=== PATIENT | female | born 1975 | race Caucasian/White ===

== ENCOUNTER 2018-11-27 11:27 | Inpatient (IN) ==
[2018-11-27] MEDS ORDERED: Naloxone 0.4 MG/ML INJ IVP PRN (16:21)
[2018-11-27] MEDS ORDERED: Ondansetron 4 MG/2 ML VIAL IVP PRN (16:21)
[2018-11-27] MEDS ORDERED: Piperacillin/Tazobactam 3.375 GM in Water for inj. (sterile) 20 ML IVP ONE (16:28)
[2018-11-27] MEDS ORDERED: Ringers Solution, Lactated 1,000 ML IVC SCH (16:30)
--- NOTE | 2018-11-27 16:48 | Internal Med History&Physical ---
Date of Encounter: 11/27/18 Time of Encounter: 16:00 Internal Medicine - H&P: HPI Chief complaint: periorbital cellulitis Admitted From: Hospital to Hospital Transfer Plans for Post Hospital Care: Home History of present illness: Mrs. 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 Patient was in the emergency department on 11/22 due to eye abration. She then followed with graduate research assistant and she was placed on antibiotics with improvement in her symptoms. She woke up today with erythema, and swelling around her orbitals. She denied any vision changes, fever, chills or night sweats. She has no nausea or vomiting. She denied any chest pain, shortness of breath, palpitation, abdominal pain, changes in urinary or bowel habits. CT scan of the orbit does did not reveal any abscess formation however it revealed preseptal left orbital cellulitis with no post-septal extension. Patient was also noted to have infected cyst on her forehead which was incision and drained by the emergency department physician. Patient was afebrile, HDS. She has leukocytosis with WBC count 11.5, her kidneys function at baseline with BUN 24, creatinine 2.33. Rest of the blood work was unremarkable. Of note, patient had kidney transplant in 2010 and she is on Prograf and CellCept. Her transplant was done at [place] and she follows once a year overdue and she has an establish care with a shank threader [facility]. Past Med Surg Social Fam HX - Past Medical History Attestation: Yes The following information was validated with the patient. Source: patient Medical history: dialysis, renal disease, thyroid disease Additional medical history: tuberous sclerosis, dialysis 6yrs ago, kidney transplant Psychiatric history: no psych history - Past Surgical History Surgical History: herniorrhaphy, hysterectomy Additional surgical history: kidney transplant right 13yrs ago, fistula to right arm - Social History Smoking Status: Never smoker Smokeless Tobacco Status: No Alcohol use: none Drug use: none - Family History Mother Hx Family GI Disorders: No - Additional Family History Additional family history: she doesn't report any family history Internal Medicine - H&P: Meds Aspirin [Adult Low Dose Aspirin EC] 81 mg PO DAILY 02/18/15 [History] Mycophenolate Mofetil [Cellcept] 250 mg PO BID 02/18/15 [History] Tacrolimus [Prograf] 1 mg PO QAM 02/18/15 [History] Tacrolimus [Prograf] 2 mg PO HS 12/16/16 [History] Cinacalcet [Sensipar] 30 mg PO DAILY 04/15/17 [History] Cholecalciferol (Vitamin D3) [Vitamin D3] 5,000 unit PO DAILY 08/07/18 [History] Ciprofloxacin HCl [Cipro] 250 mg PO BID #14 tab 08/07/18 [Rx] Melatonin 3 mg PO HS 08/07/18 [History] Pantoprazole Sodium [Protonix] 40 mg PO DAILY 08/07/18 [History] Potassium Chloride [K-Tab ER] 20 meq PO DAILY 08/07/18 [History] Ranitidine HCl [Heartburn Relief] 150 mg PO DAILY 08/07/18 [History] Simvastatin [Zocor] 20 mg PO HS 08/07/18 [History] Diclofenac Sodium 1 drop LEFT EYE Q6H PRN #2.5 drops 11/22/18 [Rx] Gentamicin OPTH Soln [Gentak OPTH Soln] 1 drop LEFT EYE QID #5 bottle 11/22/18 [Rx] Allergy/AdvReac Type Severity Reaction Status Date / Time latex Allergy Hives Verified 03/16/18 07:10 Sulfa (Sulfonamide Allergy Hives Verified 03/16/18 07:10 Antibiotics) morphine AdvReac Confusion Verified 03/16/18 07:10 promethazine [From Phenergan] AdvReac Confusion Verified 03/16/18 07:10 DAIRY PRODUCTS AdvReac Diarrhea Uncoded 12/16/16 09:07 All Systems PM: A 10-system review of systems was performed and is negative for pertinent findings except as documented above in the HPI. - Constitutional Vitals: Temp Pulse Resp BP Pulse Ox 98.2 F 84 17 117/83 98 11/27/18 15:22 11/27/18 15:22 11/27/18 15:22 11/27/18 15:22 11/27/18 15:22 Exam: General: Patient is alert, oriented 3. Head: Atraumatic, normal inspection, normocephalic. Eye: EOMI, PERRLA, no scleral icterus noted. Mild conjunctival erythema. Periorbital Mild warmth and erythema noted bilaterally, no fluctuation or abscess formation noted. ENT: Mucous membranes moist. Neck: Normal inspection, no meningismus. Respiratory: No respiratory distress, rhonchi, or wheezes noted. Cardiovascular: Regular rate and irregular rhythm, S1 and S2 audible. No murmurs, rubs, or gallops. GI: Soft, nondistended, normal bowel sounds. Extremities:No joint swelling, pedal edema, or tenderness noted. Neurological: Alert, oriented 3, no focal deficits. Psychiatric: normal affect, normal mood. Skin: Dry, intact, warm. Normal color. No rashes. Internal Med - H&P Results - EKG Data Prior EKG available for review: yes Interpretation IM: normal EKG - Diagnostic Studies Other Images Additional comments: CT scan of the orbital with periorbital swelling - Assessment and Plan (1) Periorbital cellulitis Current Visit: Yes Status: Acute Qualifiers: Laterality: left Qualified Code(s): L03.213 - Periorbital cellulitis (2) History of kidney transplant Current Visit: Yes Status: Chronic (3) Hyperlipidemia Current Visit: Yes Status: Acute Qualifiers: Hyperlipidemia type: unspecified Qualified Code(s): E78.5 - Hyperlipidemia, unspecified (4) History of tuberous sclerosis Current Visit: Yes Status: Chronic (5) DVT prophylaxis Current Visit: Yes Status: Acute - Summary of Assessment and Plan Summary of Assessment and Plan: Mrs. 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 periorbital cellulitis: - Patient is not septic. she has mild leukocytosis. - Will get BCx and MRSA swab. - will start her on Zyvox AND renally dosed zosyn - consult placed to ID. Hx of kidney transplant: - Nephrology is consulted. Will keep both Prograf and CellCept. - We will check Prograf level CVD stage III: - Creatinine is 2.3 which is at baseline. - We will give 1 L of IV fluids. Monitor input and output, renal diet and consult nephrology. Hyperlipidemia: - Continue simvastatin DVT prophylaxis: - Subacute heparin CODE STATUS: Full code - Time Spent With Patient Total time spent is greater than 50% in coordination of care (as documented) at patient's floor/unit and/or counseling patient:
[2018-11-27 17:09] LABS: Basophils % 0.2 %; Eosinophils # 0.1 K/mcL (0.0-0.6); Eosinophils % 0.4 %; Hematocrit 35.1 % (35.3-44.9); Hemoglobin 10.4 g/dL (11.5-15.4); Immature Granulocytes % 0.3 % (0-4); Lymphocytes # 0.8 K/mcL (0.6-4.6); Lymphocytes % 6.5 %; Mean Corpuscular HGB Conc 29.6 g/dL (31.6-35.5); Mean Corpuscular Volume 101.2 fL (83.0-100.0); Monocytes # 0.5 K/mcL (0.0-1.3); Monocytes % 4.6 %; Neutrophils # 10.2 K/mcL (1.6-8.9); Platelet Count 147 K/mcL (140-400); Red Blood Count 3.47 M/mcL (3.82-4.97); Red Cell Distribution Width 13.2 % (11.5-14.5); White Blood Count 11.6 K/mcL (4.3-11.1)
[2018-11-27] MEDS ORDERED: DICLOFENAC OP PRN (17:16)
[2018-11-27] MEDS: Piperacillin/Tazobactam 3.375 GM in 0.9 % Sodium Chloride Mini Bag 100 ML IVPB SCH (17:58)
[2018-11-27] MEDS: *HR* Heparin 5,000 UNIT/ML VIAL SQ SCH (17:58)
[2018-11-27 18:52] LABS: Bilirubin,Urine Negative (Negative); Blood,Urine Negative (Negative); Clarity,Urine Cloudy (Clear); Color,Urine Yellow (Yellow); Glucose,Urine (UA) Normal (Normal); Ketones,Urine Negative (Negative); Leukocyte Esterase,Urine Moderate (Negative); Nitrite,Urine Negative (Negative); Protein,Urine Trace mg/dL (Neg-Trace); Specific Gravity,Urine 1.013 (1.010-1.025); Urobilinogen,Urine Normal (Normal)
[2018-11-27 18:55] LABS: Bacteria,Urine None Seen per hpf (None-Few); Hyaline Casts,Urine None Seen per lpf (None-Few); RBC,Urine 0-3 per hpf (0-3); Squamous Epithelial Cell,Urine Many per lpf (None-Few); WBC,Urine 50-100 per hpf (0-3)
[2018-11-27] MEDS: Tacrolimus [Prograf] 1 MG PO SCH (20:55)
[2018-11-27] MEDS: Melatonin 3 MG TABLET PO SCH (20:55)
[2018-11-27] MEDS: Gentamicin OPTH Soln 5 ML BOTTLE LEFT EYE SCH (20:55)
[2018-11-28] MEDS: Piperacillin/Tazobactam 3.375 GM in 0.9 % Sodium Chloride Mini Bag 100 ML IVPB SCH ×3 (00:25→17:00)
[2018-11-28 01:37] LABS: Calcium 9.1 mg/dL (8.6-10.3); Magnesium 1.8 mg/dL (1.6-2.6); Phosphorous 4.6 mg/dL (2.7-4.5); Potassium 4.5 mEq/L (3.5-5.1)
[2018-11-28] MEDS: *HR* Heparin 5,000 UNIT/ML VIAL SQ SCH ×2 (06:46→17:17)
[2018-11-28] MEDS ORDERED: TACROLIMUS 2 MG PO SCH (09:00)
[2018-11-28] MEDS: Cholecalciferol (D-3) 1,000 UNIT TABLET PO SCH (09:59)
[2018-11-28] MEDS: Aspirin Enteric Coated 81 MG Tablet PO SCH (09:59)
[2018-11-28] MEDS: Gentamicin OPTH Soln 5 ML BOTTLE LEFT EYE SCH ×4 (10:05→21:01)
[2018-11-28] MEDS: Tacrolimus [Prograf] 1 MG PO SCH ×2 (10:08→21:01)
[2018-11-28 11:23] LABS: Basophils % 0.2 %; Eosinophils # 0.1 K/mcL (0.0-0.6); Eosinophils % 1.5 %; Hematocrit 36.3 % (35.3-44.9); Immature Granulocytes % 0.4 % (0-4); Lymphocytes # 0.8 K/mcL (0.6-4.6); Mean Corpuscular HGB Conc 30.3 g/dL (31.6-35.5); Mean Corpuscular Hemoglobin 29.8 pg (28.0-33.3); Mean Corpuscular Volume 98.4 fL (83.0-100.0); Mean Platelet Volume 10.4 fL (9.4-12.4); Monocytes # 0.4 K/mcL (0.0-1.3); Monocytes % 5.2 %; Neutrophils # 6.7 K/mcL (1.6-8.9); Platelet Count 155 K/mcL (140-400); Red Blood Count 3.69 M/mcL (3.82-4.97); Red Cell Distribution Width 13.1 % (11.5-14.5); Segmented Neutrophils % 82.7 %; White Blood Count 8.1 K/mcL (4.3-11.1)
--- NOTE | 2018-11-28 14:04 | Internal Med Progress Note ---
Hospitalist Progress Note - Encounter Date of Encounter: 11/28/18 Time of Encounter: 10:00 - Subjective Interval History: Patient was seen today. She feels way better than yesterday. She denies fever, chills or night sweats. - Exam Vitals: Temp Pulse Resp BP Pulse Ox 98.1 F 67 15 109/77 95 11/28/18 10:51 11/28/18 10:51 11/28/18 10:51 11/28/18 10:51 11/28/18 10:51 Exam: General: Patient is alert, oriented 3. Head: Atraumatic, normal inspection, normocephalic. Eye: EOMI, PERRLA, no scleral icterus noted. Mild conjunctival erythema. Per iorbital Mild warmth and erythema noted bilaterally, no fluctuation or abscess formation noted. ENT: Mucous membranes moist. Neck: Normal inspection, no meningismus. Respiratory: No respiratory distress, rhonchi, or wheezes noted. Cardiovascular: Regular rate and iregular rhythm, S1 and S2 audible. No murmurs, rubs, or gallops. GI: Soft, nondistended, normal bowel sounds. Extremities:No joint swelling, pedal edema, or tenderness noted. Neurological: Alert, oriented 3, no focal deficits. Psychiatric: normal affect, normal mood. Skin: Dry, intact, warm. Normal color. No rashes. - Assessment and Plan (1) Periorbital cellulitis Current Visit: Yes Status: Inactive (2) History of kidney transplant Current Visit: Yes Status: Chronic (3) Hyperlipidemia Current Visit: Yes Status: Chronic (4) History of tuberous sclerosis Current Visit: Yes Status: Chronic (5) DVT prophylaxis Current Visit: Yes Status: Acute - Summary of Assessment and Plan Summary of Assessment and Plan: Mrs. 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 periorbital cellulitis: - Patient is not septic. she has mild leukocytosis. - Will get BCx and MRSA swab. - on Zyvox AND renally dosed zosyn day 2, will keep monitoring. - consult placed to ID. Hx of kidney transplant: - Nephrology is consulted. Will keep both Prograf and CellCept. - We will check Prograf level. CVD stage III: - Creatinine is 2.3 which is at baseline. today 2.3. - DC IV fluids. Monitor input and output, renal diet and consult nephrology. Hyperlipidemia: - Continue simvastatin DVT prophylaxis: - Subacute heparin CODE STATUS: Full code - Time Spent with Patient Total time spent is greater than 50% in coordination of care (as documented) at patient's floor/unit and/or counseling patient: Plan of Care Discussed with: patient Internal Medicine: Result - Labs CBC & Chem 7: 11/28/18 10:41 11/28/18 00:35 Labs: Short CBC 11/27/18 11/28/18 Range/Units 16:51 10:41 WBC 11.6 H 8.1 (4.3-11.1) K/mcL Hgb 10.4 L 11.0 L (11.5-15.4) g/dL Hct 35.1 L 36.3 (35.3-44.9) % Plt Count 147 155 (140-400) K/mcL Neutrophils # 10.2 H 6.7 (1.6-8.9) K/mcL BMP 11/28/18 00:35 Sodium 137 Potassium 4.5 Chloride 107 Carbon Dioxide 19 L BUN 26 H Creatinine 2.26 H Glucose 97 Calcium 9.1 Urine 11/27/18 Range/Units 17:54 Urine Color Yellow (Yellow) Urine Clarity Cloudy A (Clear) Urine pH 6.0 (5.0-8.0) pH Units Ur Specific Byron 1.013 (1.010-1.025) Urine Protein Trace (Neg-Trace) mg/dL Urine Glucose (UA) Normal (Normal) mg/dL Consult Discharge Plan - Plan Referrals: Rose Urrutia MD [Primary Care Provider] - (1) Periorbital cellulitis Qualifiers: Laterality: left Qualified Code(s): L03.213 - Periorbital cellulitis (3) Hyperlipidemia Qualifiers: Hyperlipidemia type: unspecified Qualified Code(s): E78.5 - Hyperlipidemia, unspecified
--- NOTE | 2018-11-28 17:16 | Nephrology Consult Note ---
Date of Encounter: 11/28/18 Time of Encounter: 15:00 Assessment and Plan (1) History of kidney transplant Current Visit: Yes Status: Acute Continue current antirejection regimen. tacrolimus level will take awhile to return Continue adequate fluid intake with goal of 2-3liters a day Avoid nephrotoixns if possible Lytes stable (2) History of tuberous sclerosis Current Visit: Yes Status: Chronic (3) CKD (chronic kidney disease) stage 4, GFR 15-29 ml/min Current Visit: Yes Status: Acute History of Present Illness - Reason for Consult Consult date: 11/28/18 Chronic Kidney Disease Requesting physician: Brittney Oneal - History of Present Illness 43 y o female with PMH of tuberous sclerosis with resultant ESRD requiring HD for 6 years prior to renal transplant in 2010 at and now stage 4 CKD admitted as a transfer from [facility] for periorbital cellulitis. Renal consulted to help with management on her antirejection meds, currently on cellcept and tacrolimus. Pt seen and examined feeling better after I/D lesion on forehead. SCr noted at 2.26, GFR 23 slightly improved from 2.33. Baseline fluctuates from 2-3s Past Med Surg Social Fam HX - Past Medical History Medical history: dialysis, renal disease, thyroid disease Additional medical history: tuberous sclerosis, dialysis 6yrs ago, kidney transp lant Psychiatric history: no psych history - Past Surgical History Surgical History: herniorrhaphy, hysterectomy Additional surgical history: kidney transplant right 13yrs ago, fistula to right arm - Social History Smoking Status: Never smoker Smokeless Tobacco Status: No Alcohol use: none Drug use: none - Family History Mother Hx Family GI Disorders: No Medications and Allergies Tacrolimus [Prograf] 2 mg PO BID 12/16/16 [History] Cinacalcet [Sensipar] 30 mg PO DAILY 04/15/17 [History] Ranitidine HCl [Heartburn Relief] 150 mg PO BID 08/07/18 [History] Aspirin [Adult Aspirin Regimen] 81 mg PO DAILY 11/28/18 [History] Bacitracin 1 appl LEFT EYE HS 11/28/18 [History] Besifloxacin HCl [Besivance] 1 drop LEFT EYE Q6H 11/28/18 [History] Melatonin 10 mg PO HS PRN 11/28/18 [History] Mycophenolate Mofetil [Cellcept] 250 mg PO BID 11/28/18 [History] Tobramycin Opth SOLN 1 drop LEFT EYE Q30M 11/28/18 [History] predniSONE [PredniSONE] 5 mg PO DAILY 11/28/18 [History] 3 Allergy/AdvReac Type Severity Reaction Status Date / Time latex Allergy Hives Verified 03/16/18 07:10 Sulfa (Sulfonamide Allergy Hives Verified 03/16/18 07:10 Antibiotics) morphine AdvReac Confusion Verified 03/16/18 07:10 promethazine [From Phenergan] AdvReac Confusion Verified 03/16/18 07:10 DAIRY PRODUCTS AdvReac Diarrhea Uncoded 12/16/16 09:07 Exam - Vital Signs Vital signs: Initial Vital Signs Temp Pulse Resp BP Pulse Ox 98.2 F 84 17 117/83 98 11/27/18 15:22 11/27/18 15:22 11/27/18 15:22 11/27/18 15:22 11/27/18 15:22 Vital Signs - Last 8 Hours Temp Pulse Resp BP Pulse Ox 11/28/18 14:56 98.8 F 78 17 119/77 96 11/28/18 10:51 98.1 F 67 15 109/77 95 Intake and Output 11/28/18 11/28/18 11/28/18 07:59 15:59 23:59 Intake Total 100 / 320 220 / 320 Output Total 300 / 1200 900 / 1200 Balance -200 / -880 -680 / -880 Intake: IV Fluids 100 / 200 100 / 200 Zosyn 3.375 GM In 0.9 % Sodium 100 / 200 100 / 200 Chloride (Mini-Bag +) 100 ML @ 25 mls/hr IVPB Q8H [facility] Rx#: [id number] Oral 0 / 120 120 / 120 Output: Urine 300 / 1200 900 / 1200 Other: Meal Lunch Percent of Meal Consumed 75% Weight 107.3 kg Patient Weight 11/28/18 23:59 Weight 107.3 kg Results - Lab Results 11/28/18 10:41 11/28/18 00:35 Consult Discharge Plan - Plan Referrals: Rose Urrutia MD [Primary Care Provider] -
[2018-11-28] MEDS: Melatonin 3 MG TABLET PO SCH (21:00)
[2018-11-29] MEDS: Piperacillin/Tazobactam 3.375 GM in 0.9 % Sodium Chloride Mini Bag 100 ML IVPB SCH ×2 (01:27→09:15)
[2018-11-29 02:04] LABS: Calcium 9.5 mg/dL (8.6-10.3); Potassium 4.4 mEq/L (3.5-5.1)
[2018-11-29] MEDS: *HR* Heparin 5,000 UNIT/ML VIAL SQ SCH (06:06)
[2018-11-29] MEDS: Cholecalciferol (D-3) 1,000 UNIT TABLET PO SCH (09:14)
[2018-11-29] MEDS: Aspirin Enteric Coated 81 MG Tablet PO SCH (09:14)
[2018-11-29] MEDS: Gentamicin OPTH Soln 5 ML BOTTLE LEFT EYE SCH ×2 (09:16→12:46)
[2018-11-29] MEDS: Tacrolimus [Prograf] 1 MG PO SCH (09:16)
--- NOTE | 2018-11-29 09:47 | Infectious Disease Consult ---
Infectious Disease-Consult - Encounter Date/Time Date of Encounter: 11/29/18 Time of Encounter: 11:08 - Data of Consult Patient: new to practice Reason for consult: periorbital cellulitis, on immunosupression Consult date: 11/29/18 Requesting Physician: Brittney Oneal Primary Care Provider: Rose Urrutia MD - HPI HPI: Ms. Wellington is a 43-year-old female with a past medical history of tuberous scl erosis status post renal transplant in 2010 currently on Prograf and CellCept, and thyroid disease. The patient was admitted to the hospital 11/27/18 for an infected sebaceous cyst and P orbital cellulitis. We are consulted 11/29/18 for further workup and treatment recommendations 4. Orbital cellulitis in an immunosuppressed patient. Briefly, the patient's a 43-year-old female with a past medical history as stated above. The patient was evaluated in the emergency department on 11/22/18 when she presented with complaints of left eye pain. She was diagnosed with a corneal abrasion and referred to ophthalmology who placed her on antibiotic eyedrops. She was doing well until the day before this admission when she developed a bump to the middle of her for head that progressively became more painful and swollen. On the day of admission, she woke up with left. Orbital swelling and presented to the ER for evaluation. Upon arrival, the patient was afebrile and hemodynamically stable. Her WBC was normal. Renal function was at baseline. Urinalysis was collected and appeared contaminated, but was sent for culture which is no growth. She underwent a bedside I&D of the sebaceous cyst on her for head. Cultures were obtained and are no growth. She was CT of the orbits that revealed findings consistent with preseptal left orbital cellulitis and soft tissue forehead swelling. Blood cultures were obtained 2 sets. She was transferred to [facility] for further evaluation and treatment. Since admission here, the patient has remained afebrile and hemodynamically stable. Her WBC remains normal. Repeat blood cultures drawn upon arrival here are also no growth to date 2 sets. She had a MRSA nasal screen was negative. Nephrology was consulted. Currently, she is on IV Zyvox and Zosyn. He is also on gentamicin eyedrops. We have been asked to evaluate and make further recommendations. During my exam today, the patient is somewhat resistant to my questions and exam. She does endorse the history as stated above. States she has never had anything like this before area and states she has not had any fevers or chills or rigors. Denies headache or neck pain. Reports some mild blurred vision in her left eye secondary to her corneal abrasion that seems to be improved. Denies pain with movement of her eyes. States the pain and swelling to her for head is markedly improved and is no longer painful. Denies chest pain, shortness of breath, or cough. Denies nausea, vomiting, diarrhea, or constipation. Denies oral thrush or skin rashes. Denies abdominal pain or urinary complaints. The patient lives at home with her parents. She does not work outside the home. Her transplant surgery was in [place] and she continues to follow with her transplant surgeon on a regular basis. She is currently on CellCept and Prograf and states that she has 100% compliant with her medications. She denies any chronic infectious diseases. Denies tobacco, alcohol, or illicit drug use. - ROS Review of Systems: All systems reviewed and no additional remarkable complaints except as stated. - Results CBC & Chem 7: 11/28/18 10:41 11/29/18 01:10 - Exam Vitals: Temp Pulse Resp BP Pulse Ox 97.8 F 63 16 112/76 99 11/29/18 06:38 11/29/18 06:38 11/29/18 06:38 11/29/18 06:38 11/29/18 06:38 Exam: Head: Atraumatic, normal inspection, normocephalic. Scabbed lesion noted to the middle of the forehead with mild surrounding edema. No erythema, warmth, tenderness, or drainage noted. Eye: EOMI, EOM painless. PERRLA, no scleral icterus noted. Mild left periorbital edema noted without erythema or tenderness. ENT: Mucous membranes moist. No odontogenic infection noted. Neck: Normal inspection, no meningismus. Respiratory: Clear to auscultation. No rales, respiratory distress, rhonchi, or wheezes noted. Cardiovascular: Regular rate and rhythm, S1 and S2 audible. No murmurs, rubs, or gallops. GI: Soft, nondistended, normal bowel sounds. Extremities:No joint swelling, pedal edema, or tenderness noted. AV fistula noted to the right upper extremity positive/positive. Back: Normal inspection. No vertebral tenderness noted. Neurological: Alert, oriented 3, no focal deficits. Psychiatric: normal affect, normal mood. Skin: Dry, intact, warm. Normal color. No rashes. Multiple skin tags noted to various areas of the body. Tacrolimus [Prograf] 2 mg PO BID 12/16/16 [History] Cinacalcet [Sensipar] 30 mg PO DAILY 04/15/17 [History] Ranitidine HCl [Heartburn Relief] 150 mg PO BID 08/07/18 [History] Aspirin [Adult Aspirin Regimen] 81 mg PO DAILY 11/28/18 [History] Bacitracin 1 appl LEFT EYE HS 11/28/18 [History] Besifloxacin HCl [Besivance] 1 drop LEFT EYE Q6H 11/28/18 [History] Melatonin 10 mg PO HS PRN 11/28/18 [History] Mycophenolate Mofetil [Cellcept] 250 mg PO BID 11/28/18 [History] Tobramycin Opth SOLN 1 drop LEFT EYE Q30M 11/28/18 [History] predniSONE [PredniSONE] 5 mg PO DAILY 11/28/18 [History] Cholecalciferol (D-3) [Vitamin D] 1,000 unit PO DAILY tablet 11/29/18 [Rx] Clindamycin HCl [Cleocin HCl] 600 mg PO TID 14 Days #42 cap 11/29/18 [Rx] Gentamicin OPTH Soln [Gentak OPTH Soln] 1 drop LEFT EYE QID bottle 11/29/18 [Rx] Patient Taking Own Medication 1 each OP Q6H PRN each 11/29/18 [Rx] Simvastatin [Zocor] 20 mg PO HS tablet 11/29/18 [Rx] Allergy/AdvReac Type Severity Reaction Status Date / Time latex Allergy Hives Verified 03/16/18 07:10 Sulfa (Sulfonamide Allergy Hives Verified 03/16/18 07:10 Antibiotics) morphine AdvReac Confusion Verified 03/16/18 07:10 promethazine [From Phenergan] AdvReac Confusion Verified 03/16/18 07:10 DAIRY PRODUCTS AdvReac Diarrhea Uncoded 12/16/16 09:07 - Assessment and Plan (1) Preseptal cellulitis of left eye Status: Acute Causative organism: Unclear. Etiology: Unclear. CT of the orbits showed findings consistent with preseptal cellulitis. Improved per patient report. No erythema or tenderness noted on exam. Currently on zyvox and Zosyn. SNOMED Code(s): 155933124 (2) Infected sebaceous cyst Status: Acute Etiology: Unclear. Status post bedside I&D. Wound culture no growth. Improved per patient report. Currently on Zyvox and Zosyn. SNOMED Code(s): 995379572 (3) Corneal abrasion Status: Inactive Gentamicin drops per ophthalmology. Qualifiers: Encounter type: initial encounter Laterality: left Qualified Code(s): S05.02XA - Injury of conjunctiva and corneal abrasion without foreign body, left eye, initial encounter SNOMED Code(s): 48470480 (4) CKD (chronic kidney disease) stage 4, GFR 15-29 ml/min Status: Chronic Creatinine appears to be at baseline. Nephrology consult and following. Avoid nephrotoxins as able. Dosage adjust medications. SNOMED Code(s): 040574100 (5) History of kidney transplant Status: Chronic Status post renal transplant in 2010 at [facility]. Currently on CellCept and Prograf. SNOMED Code(s): 352216643, 908311856 (6) History of tuberous sclerosis Status: Chronic SNOMED Code(s): 089446225, 596048740 - Recommendations Recommendations: Await blood cultures to finalize. Gentamicin eye gtt's per opthalmology recommendations. Continue Zosyn 3.375 grams IV Q8H. (CrCl ~21). Continue Zyvox 600 mg IV twice a day. Duration of treatment depends on the clinical picture. Can likely transition to oral clindamycin 600mg PO Q8H when ready for discharge to complete a total of 14 days of treatment. Treat through 12/10/18. Monitor renal function closely and dose-adjust antibiotics. Past Med Surg Social Fam HX - Past Medical History Medical history: dialysis, renal disease, thyroid disease Additional medical history: tuberous sclerosis, dialysis 6yrs ago, kidney tra nsplant Psychiatric history: no psych history - Past Surgical History Surgical History: herniorrhaphy, hysterectomy Additional surgical history: kidney transplant right 13yrs ago, fistula to right arm - Social History Smoking Status: Never smoker Smokeless Tobacco Status: No Alcohol use: none Drug use: none - Family History Mother Hx Family GI Disorders: No Consult Discharge Plan - Plan Instructions: Clindamycin (By mouth), Cellulitis (DC), Corneal Abrasion (GEN), Orbital Cellulitis (GEN), Epidermal Inclusion Cysts (GEN) Referrals: Rose Urrutia MD [Primary Care Provider] - (Web request sent. Office will call patient with date and time of appointment. Thank you) Prescriptions: Clindamycin HCl [Cleocin HCl] 600 mg PO TID 14 Days #42 cap - Attending Attestation I have personally performed a face to face evaluation on this patient. I have reviewed and agree with the care plan. History and Exam by me shows: This is an addendum to original report dictated by Beverley Orourke CMP. Please refer to Beverley's note for full detail. I agree with above history of present illness, review of systems and physical exam findings. Assessment and plan: Preseptal cellulitis resolved Abscess on the forehead resolved Immunosuppressed status secondary to tuberous sclerosis Currently on Prograf and CellCept X Recommendations: Gentamicin eye gtt's per opthalmology recommendations. transition to oral clindamycin 600mg PO Q8H when ready for discharge to complete a total of 14 days of treatment. Treat through 12/10/18. Monitor renal function closely and dose-adjust antibiotics. Discussed with the hospitalist team
[2018-11-29 14:10] VITALS: BP 104/73
--- NOTE | 2018-11-29 16:59 | Discharge Summary ---
- NOTES TO OUTPATIENT PROVIDER Notes to Outpatient Provider: finish her course of ABx Orders not resulted at time of discharge: Pending orders 11/27/18 16:51 Culture,Blood [BC] Stat Date of Encounter: 11/29/18 Time of Encounter: 10:00 - Discharge Diagnosis (1) Periorbital cellulitis Priority: Primary Status: Acute Qualifiers: Laterality: left Qualified Code(s): L03.213 - Periorbital cellulitis (2) History of kidney transplant Priority: Secondary Status: Chronic (3) Hyperlipidemia Priority: Secondary Status: Chronic Qualifiers: Hyperlipidemia type: unspecified Qualified Code(s): E78.5 - Hyperlipidemia, unspecified (4) History of tuberous sclerosis Priority: Secondary Status: Chronic (5) DVT prophylaxis Priority: Secondary Status: Acute (6) CKD (chronic kidney disease) stage 4, GFR 15-29 ml/min Priority: Secondary Status: Chronic (7) Obesity, Class III, BMI 40-49.9 (morbid obesity) Priority: Secondary Status: Chronic Hospital course: Mrs. 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 Patient was managed with Zyvox and Zosyn for treatment is. Infectious disease evaluated the patient and he recommended clindamycin 600 mg every 8 hours for 14 days. Patient was also seen by nephrology service who recommended to follow up with the primary nephritis as outpatient. Blood cultures remain negative throughout hospitalization. Patient will be discharged today in stable condition. She is hemodynamically stable. Discharge discussed with: patient - Time Spent with Patient Total time spent providing and/or coordinating discharge services: 35 minutes - Discharge Medications Prescriptions: New Simvastatin [Zocor] 20 mg PO HS tablet Patient Taking Own Medication 1 each OP Q6H PRN each PRN Reason: Pain Gentamicin OPTH Soln [Gentak OPTH Soln] 1 drop LEFT EYE QID bottle Cholecalciferol (D-3) [Vitamin D] 1,000 unit PO DAILY tablet Continued Cinacalcet [Sensipar] 30 mg PO DAILY Aspirin [Adult Aspirin Regimen] 81 mg PO DAILY Bacitracin 1 appl LEFT EYE HS Melatonin 10 mg PO HS PRN PRN Reason: Sleep Mycophenolate Mofetil [Cellcept] 250 mg PO BID Tobramycin Opth SOLN 1 drop LEFT EYE Q30M predniSONE [PredniSONE] 5 mg PO DAILY Besifloxacin HCl [Besivance] 1 drop LEFT EYE Q6H Tacrolimus [Prograf] 2 mg PO BID Ranitidine HCl [Heartburn Relief] 150 mg PO BID Home Medications: Tacrolimus [Prograf] 2 mg PO BID 12/16/16 [History] Cinacalcet [Sensipar] 30 mg PO DAILY 04/15/17 [History] Ranitidine HCl [Heartburn Relief] 150 mg PO BID 08/07/18 [History] Aspirin [Adult Aspirin Regimen] 81 mg PO DAILY 11/28/18 [History] Bacitracin 1 appl LEFT EYE HS 11/28/18 [History] Besifloxacin HCl [Besivance] 1 drop LEFT EYE Q6H 11/28/18 [History] Melatonin 10 mg PO HS PRN 11/28/18 [History] Mycophenolate Mofetil [Cellcept] 250 mg PO BID 11/28/18 [History] Tobramycin Opth SOLN 1 drop LEFT EYE Q30M 11/28/18 [History] predniSONE [PredniSONE] 5 mg PO DAILY 11/28/18 [History] Cholecalciferol (D-3) [Vitamin D] 1,000 unit PO DAILY tablet 11/29/18 [Rx] Gentamicin OPTH Soln [Gentak OPTH Soln] 1 drop LEFT EYE QID bottle 11/29/18 [Rx] Patient Taking Own Medication 1 each OP Q6H PRN each 11/29/18 [Rx] Simvastatin [Zocor] 20 mg PO HS tablet 11/29/18 [Rx] Allergies/Adverse Reactions: Allergy/AdvReac Type Severity Reaction Status Date / Time latex Allergy Hives Verified 03/16/18 07:10 Sulfa (Sulfonamide Allergy Hives Verified 03/16/18 07:10 Antibiotics) morphine AdvReac Confusion Verified 03/16/18 07:10 promethazine [From Phenergan] AdvReac Confusion Verified 03/16/18 07:10 DAIRY PRODUCTS AdvReac Diarrhea Uncoded 12/16/16 09:07 Date of admission: 11/27/18 16:22 Primary care physician: Rose Urrutia MD Consults: 11/27/18 16:30 Consult to Infectious Diseases [CONS] Routine Consulting Provider: Infectious [facility] [place] Reason for Consult: periorbital cellulitis, on immunosupression Call Completed: Yes 11/27/18 16:37 Consult to Nephrology [CONS] Routine Consulting Provider: [facility] [place]/MIMI/LATOYA/EMILY Reason for Consult: CKD, Hx of kidney transplant, on immunosupression. Call Completed: Yes - Constitutional Vitals: Temp Pulse Resp BP Pulse Ox 98.8 F 72 16 104/73 97 11/29/18 14:05 11/29/18 14:05 11/29/18 14:05 11/29/18 14:05 11/29/18 14:05 Exam: General: Patient is alert, oriented 3. Head: Atraumatic, normal inspection, normocephalic. Eye: EOMI, PERRLA, no scleral icterus noted. ENT: Mucous membranes moist. Neck: Normal inspection, no meningismus. Respiratory: No respiratory distress, rhonchi, or wheezes noted. Cardiovascular: Regular rate and regular rhythm, S1 and S2 audible. No murmurs, rubs, or gallops. GI: Soft, nondistended, normal bowel sounds. Extremities:No joint swelling, pedal edema, or tenderness noted. Neurological: Alert, oriented 3, no focal deficits. Psychiatric: normal affect, normal mood. Skin: Dry, intact, warm. Normal color. No rashes. - Patient Status Disposition: Home, Self-Care Condition: Good Functional capacity at discharge: independent ambulation Overall status at discharge: patient is back to baseline - Discharge Instructions Instructions: Corneal Abrasion (GEN), Orbital Cellulitis (GEN), Epidermal Inclusion Cysts (GEN), Cellulitis (DC) Follow Up With: Rose Urrutia MD [Primary Care Provider] - (Web request sent. Office will call patient with date and time of appointment. Thank you) - Diet and Activity Activity: resume usual activities as tolerated Diet: other (renal diet)
--- NOTE | 2018-11-29 17:42 | Nephrology Progress Note ---
Date of Encounter: 11/29/18 Time of Encounter: 15:00 - Assessment and Plan (1) CKD (chronic kidney disease) stage 4, GFR 15-29 ml/min Status: Chronic SCr slightly worse today but within range of fluctuation at 2.61, GFR 20 Pt to have monthly labs after discharge which would be followed by my associate Dr Lofton outpatient Pt encouraged to continue followup with [facility] transplant Continue antirejection regimen Ok to discharge from a renal standpoint (2) History of kidney transplant Status: Chronic (3) History of tuberous sclerosis Status: Chronic Subjective Interval history: Pt seen and examined anticipating discharge today as she feels better. Parents at bedside Objective - Vital Signs Vital signs: Vital Signs Temp Pulse Resp BP Pulse Ox 11/29/18 14:05 98.8 F 72 16 104/73 97 11/29/18 10:13 98.6 F 62 16 115/76 96 11/29/18 06:38 97.8 F 63 16 112/76 99 11/29/18 05:01 98.0 F 52 16 105/72 99 11/28/18 19:40 98.5 F 67 16 109/77 97 Intake and Output 11/29/18 11/29/18 11/29/18 07:59 15:59 23:59 Intake Total 100 / 1180 1080 / 1180 Output Total 800 / 1500 700 / 1500 Balance -700 / -320 380 / -320 Intake: IV Fluids 100 / 100 Zosyn 3.375 GM In 0.9 % Sodium 100 / 100 Chloride (Mini-Bag +) 100 ML @ 25 mls/hr IVPB Q8H KAYLA Rx#: [id number] Oral 0 / 1080 1080 / 1080 Output: Urine 800 / 1500 700 / 1500 Other: Meal Lunch Percent of Meal Consumed 100% # Voids 2 # Bowel Movements 1 Weight 108.5 kg Patient Weight 11/29/18 23:59 Weight 108.5 kg - Lab 11/28/18 10:41 11/29/18 01:10 Consult Discharge Plan - Plan Instructions: Clindamycin (By mouth), Cellulitis (DC), Corneal Abrasion (GEN), Orbital Cellulitis (GEN), Epidermal Inclusion Cysts (GEN) Referrals: Rose Urrutia MD [Primary Care Provider] - (Web request sent. Office will call patient with date and time of appointment. Thank you) Prescriptions: Clindamycin HCl [Cleocin HCl] 600 mg PO TID 14 Days #42 cap
== END 2018-11-29 17:21 | disposition home or self-care (01) | DRG 603 ==
LOC: 3ANU → SUATTDRO 14:46
PROVIDERS: ADMIT Internal Medicine; ATTEND Internal Medicine

== ENCOUNTER 2020-09-25 10:58 | Observation (INO) ==
[2020-09-25] MEDS ORDERED: Ondansetron 4 MG/2 ML VIAL IVP ONE (11:08)
[2020-09-25] MEDS ORDERED: 0.9 % Sodium Chloride 1,000 ML IVC ONE (11:08)
[2020-09-25 12:02] LABS: Alanine Aminotransferase 46 Units/L (7-52); Albumin 4.5 g/dL (3.5-5.7); Albumin/Globulin Ratio 1.9 (1.1-2.2); Alkaline Phosphatase 188 Units/L (34-104); Aspartate Amino Transferase 24 Units/L (13-39); BUN/Creatinine Ratio 10 (6-26); Bilirubin,Total 0.4 mg/dL (0.3-1.0); Blood Urea Nitrogen 25 mg/dL (6-20); Calcium 9.9 mg/dL (8.6-10.3); Carbon Dioxide 18 mEq/L (23-29); Chloride 109 mEq/L (98-107); Globulin 2.4 g/dL (2.4-3.5); Glucose 146 mg/dL (70-105); Lipase 46 Units/L (11-82); Osmolality,Calculated 299 (280-300); Potassium 3.3 mEq/L (3.5-5.1); Sodium 141 mEq/L (136-145); Total Protein 6.9 g/dL (6.4-8.9); Troponin I < 0.03 ng/mL (< 0.04); eGFR For African Americans 24 (> 60); eGFR For Non-African Americans 20 (> 60)
[2020-09-25 12:03] LABS: Basophils % 0.4 %; Eosinophils # 0.1 K/mcL (0.0-0.6); Eosinophils % 1.1 %; Hematocrit 39.3 % (35.3-44.9); Hemoglobin 11.8 g/dL (11.5-15.4); Immature Granulocytes % 0.3 % (0-4); Lymphocytes # 0.8 K/mcL (0.6-4.6); Lymphocytes % 8.3 %; Mean Corpuscular Hemoglobin 29.9 pg (28.0-33.3); Mean Corpuscular Volume 99.7 fL (83.0-100.0); Mean Platelet Volume 10.6 fL (9.4-12.4); Monocytes # 0.3 K/mcL (0.0-1.3); Monocytes % 3.2 %; Neutrophils # 8.2 K/mcL (1.6-8.9); Platelet Count 211 K/mcL (140-400); Red Blood Count 3.94 M/mcL (3.82-4.97); Red Cell Distribution Width 13.2 % (11.5-14.5); Segmented Neutrophils % 86.7 %; White Blood Count 9.4 K/mcL (4.3-11.1)
[2020-09-25 13:06] LABS: Bilirubin,Urine Negative (Negative); Blood,Urine Negative (Negative); Clarity,Urine Turbid (Clear); Color,Urine Yellow (Yellow); Glucose,Urine (UA) 30 mg/dL (Normal); Ketones,Urine Negative (Negative); Leukocyte Esterase,Urine Large (Negative); Nitrite,Urine Negative (Negative); PH,Urine 5.5 pH Units (5.0-8.0); Protein,Urine 50 mg/dL (Neg-Trace); Urobilinogen,Urine Normal (Normal)
[2020-09-25 13:20] LABS: Squamous Epithelial Cell,Urine Present per hpf (None-Few)
[2020-09-25 13:21] LABS: Bacteria,Urine Present per hpf (None-Few); RBC,Urine Present per hpf (0-3); WBC,Urine Present per hpf (0-3)
[2020-09-25 16:23] LABS: Adenovirus F 40/41 PCR Not detected (Not detect); Astrovirus PCR Not detected (Not detect); C.difficile Toxin A/B Gene PCR Not detected (Not detect); Campylobacter by PCR Not detected (Not detect); Cryptosporidium by PCR Not detected (Not detect); Cyclospora cayetanensis PCR Not detected (Not detect); E. coli O157 by PCR Not detected (Not detect); Entamoeba histolytica PCR Not detected (Not detect); Enteroaggregative E.coli(EAEC) Not detected (Not detect); Enteropathogenic E.coli(EPEC) Not detected (Not detect); Enterotoxigenic E.coli (ETEC) Not detected (Not detect); Giardia lamblia PCR Not detected (Not detect); Norovirus GI/GII PCR Not detected (Not detect); Plesiomonas shigelloides PCR Not detected (Not detect); Rotavirus A PCR Not detected (Not detect); Salmonella PCR Not detected (Not detect); Sapovirus PCR Not detected (Not detect); Shig/EnteroinvasiveE coli EIEC Not detected (Not detect); Shigalike tox-prod E coli STEC Not detected (Not detect); Vibrio PCR Not detected (Not detect); Vibrio cholerae PCR Not detected (Not detect); Yersinia enterocolitica PCR Not detected (Not detect)
[2020-09-25] MEDS ORDERED: 0.9 % Sodium Chloride 1,000 ML IVC SCH (17:00)
[2020-09-25] MEDS ORDERED: cefTRIAXone 1,000 MG in Water for inj. (sterile) 10 ML IVP ONE (21:13)
[2020-09-26] MEDS ORDERED: Naloxone 0.4 MG/ML INJ IVP PRN (00:11)
[2020-09-26] MEDS ORDERED: Ondansetron 4 MG/2 ML VIAL IVP PRN (00:11)
[2020-09-26] MEDS ORDERED: 0.9 % Sodium Chloride 1,000 ML IVC SCH (00:15)
[2020-09-26] MEDS ORDERED: *HR* OxyCODONE/APAP 5/325 TABLET PO PRN (00:15)
[2020-09-26 03:38] LABS: Hematocrit 32.5 % (35.3-44.9); Mean Corpuscular HGB Conc 31.4 g/dL (31.6-35.5); Mean Corpuscular Hemoglobin 31.1 pg (28.0-33.3); Mean Corpuscular Volume 99.1 fL (83.0-100.0); Mean Platelet Volume 10.2 fL (9.4-12.4); Platelet Count 153 K/mcL (140-400); Red Blood Count 3.28 M/mcL (3.82-4.97); Red Cell Distribution Width 13.1 % (11.5-14.5); White Blood Count 6.5 K/mcL (4.3-11.1)
[2020-09-26 03:39] LABS: Hemoglobin 10.2 g/dL (11.5-15.4)
[2020-09-26 03:57] LABS: Calcium 8.9 mg/dL (8.6-10.3); Potassium 3.8 mEq/L (3.5-5.1)
[2020-09-26] MEDS: mycophenolate mofetiL 250 MG CAPSULE PO SCH ×2 (07:52→21:37)
[2020-09-26] MEDS: predniSONE 5 MG TABLET PO SCH (07:52)
[2020-09-26] MEDS: Aspirin Enteric Coated 81 MG Tablet PO SCH (07:52)
[2020-09-26] MEDS: Hydrocortisone 1% OINT 28 GM TUBE TP SCH ×2 (07:52→21:37)
[2020-09-26] MEDS: valACYclovir 500 MG TABLET PO SCH ×2 (07:52→21:36)
[2020-09-26] MEDS: Tacrolimus [Prograf] 1 MG PO SCH (10:16)
[2020-09-26] MEDS: Sodium Bicarbonate 75 MEQ in 0.45 % Sodium Chloride 1,000 ML IVC SCH (11:01)
[2020-09-26] MEDS ORDERED: clonazePAM 0.5 MG TABLET PO PRN (16:17)
[2020-09-26] MEDS: TACROLIMUS 1 MG PO SCH (18:14)
[2020-09-26] MEDS: ESLICARBAZEPINE ACETATE 600 MG PO SCH (21:37)
[2020-09-27] MEDS: Sodium Bicarbonate 75 MEQ in 0.45 % Sodium Chloride 1,000 ML IVC SCH (03:03)
[2020-09-27 04:51] LABS: Hematocrit 30.6 % (35.3-44.9); Hemoglobin 9.3 g/dL (11.5-15.4); Mean Corpuscular HGB Conc 30.4 g/dL (31.6-35.5); Mean Corpuscular Hemoglobin 30.3 pg (28.0-33.3); Mean Corpuscular Volume 99.7 fL (83.0-100.0); Platelet Count 133 K/mcL (140-400); Red Blood Count 3.07 M/mcL (3.82-4.97); White Blood Count 5.5 K/mcL (4.3-11.1)
[2020-09-27 05:07] LABS: Calcium 8.9 mg/dL (8.6-10.3); Potassium 3.9 mEq/L (3.5-5.1)
[2020-09-27] MEDS ORDERED: cefTRIAXone 1,000 MG in Water for inj. (sterile) 10 ML IVP SCH (09:00)
[2020-09-27] MEDS: valACYclovir 500 MG TABLET PO SCH ×2 (09:02→19:53)
[2020-09-27] MEDS: Aspirin Enteric Coated 81 MG Tablet PO SCH (09:03)
[2020-09-27] MEDS: predniSONE 5 MG TABLET PO SCH (09:03)
[2020-09-27] MEDS: mycophenolate mofetiL 250 MG CAPSULE PO SCH ×2 (09:03→19:50)
[2020-09-27] MEDS: ESLICARBAZEPINE ACETATE 600 MG PO SCH ×2 (09:04→19:53)
[2020-09-27] MEDS: Tacrolimus [Prograf] 1 MG PO SCH (09:04)
[2020-09-27] MEDS: Hydrocortisone 1% OINT 28 GM TUBE TP SCH ×2 (12:41→19:52)
[2020-09-27 15:13] VITALS: BP 110/71
[2020-09-27] MEDS: TACROLIMUS 1 MG PO SCH (16:59)
== END 2020-09-27 20:32 | disposition short-term general hospital (02) ==
LOC: EMEROOARM 10:58 → 3BNU 10:58 → SUATTDRO 23:36 → 3BNU 09-26 00:45
PROVIDERS: ADMIT Internal Medicine; ATTEND Nurse Practitioner